=== PATIENT | female | born 1970 | race Caucasian/White ===

== ENCOUNTER 2018-08-01 06:51 | Emergency (ER) | payer SELFPAY ==
[2018-08-01 07:02] VITALS: BP 155/84
--- NOTE | 2018-08-01 07:10 | ED Physician Documentation ---
PD HPI BACK PAIN - Stated complaint Stated Complaint: BACK PX - Chief complaint Chief Complaint: Back Pain - History obtained from History obtained from: Patient, Family - History of Present Illness Timing - onset: Yesterday Timing - duration: Days Timing - details: Abrupt onset, Still present Location: Lower, Left Quality: Pain, Spasm, Sharp, Similar to prior episodes Associated symptoms: No: Fever, Weakness, Numbness, Incontinent of urine, Unable to urinate, Hematuria, Incontinent of stool Improves with: Rest, Ice, Position, Meds Worsened by: Movement Contributing factors: Other (tripped on linoleum in travel trailer and ministerio the body) Similar symptoms before: Diagnosis (lumbar disc disease) Recently seen: Not recently seen - Additional information Additional information: 47-year-old female with a prior history of L5-S1 back surgery was in a travel trailer tripped on a piece of linoleum jarring her back and now she has pain in the lower back radiating down the left thigh. She denies any urinary incontinence or fecal incontinence. She has had similar pains previously. She had her back surgery in 2011 and has had only one similar episode since then. She does not do well with Percocet. Review of Systems Constitutional: denies: Fever Eyes: denies: Decreased vision Ears: denies: Ear pain Nose: denies: Congestion Throat: denies: Sore throat Cardiac: denies: Chest pain / pressure, Palpitations Respiratory: denies: Dyspnea, Cough GI: denies: Abdominal Pain, Nausea, Vomiting : denies: Dysuria, Frequency Skin: denies: Rash Musculoskeletal: reports: Back pain. denies: Neck pain Neurologic: denies: Generalized weakness, Focal weakness, Numbness PD PAST MEDICAL HISTORY - Present Medications Home Medications: Ambulatory Orders Medication Instructions Recorded Confirmed Cyclobenzaprine [Flexeril] 10 mg PO TID PRN #20 tablet 08/01/18 traMADol [Ultram] 50 mg PO Q6H PRN #20 tablet 08/01/18 - Allergies Allergies/Adverse Reactions: Allergies Allergy/AdvReac Type Severity Reaction Status Date / Time acetaminophen [From Percocet] Allergy Unknown Verified 08/01/18 07:02 oxycodone [From Percocet] Allergy Unknown Verified 08/01/18 07:02 PD ED PE NORMAL - Vitals Vital signs reviewed: Yes (hypertensive ) - General General: Alert and oriented X 3, No acute distress, Well developed/nourished - HEENT HEENT: Atraumatic, PERRL, EOMI - Respiratory Respiratory: No respiratory distress - Back Back: No CVA TTP, No spinal TTP, Other (point tenderness to the left lower lumbar paraspinous muslces into the sciatic notch on the left. ) - Derm Derm: Normal color, Warm and dry, No rash - Extremities Extremities: No deformity, No edema - Neuro Neuro: Alert and oriented X 3, No motor deficit, No sensory deficit, Normal speech Eye Opening: Spontaneous Motor: Obeys Commands Verbal: Oriented GCS Score: 15 - Psych Psych: Normal mood, Normal affect Results - Vitals Vitals: Vital Signs - 24 hr 08/01/18 06:55 Temperature 36.5 C Heart Rate 96 Respiratory 18 Rate Blood Pressure 155/84 H O2 Saturation 97 Oxygen O2 Source Room air PD MEDICAL DECISION MAKING - ED course Complexity details: considered differential, d/w patient, d/w family ED course: 47-year-old female with a history of prior lumbar surgery has a jarring injury and has sciatica now. She is administered dexamethasone 10 mg orally we will place her on some tramadol and cyclobenzaprine. Departure - Departure Disposition: 01 Home, Self Care Clinical Impression: Sciatica Qualifiers: Laterality: left Qualified Code(s): M54.32 - Sciatica, left side Condition: Stable Instructions: ED Sciatica Follow-Up: [facility] [Provider Group] Prescriptions: Cyclobenzaprine [Flexeril] 10 mg PO TID PRN #20 tablet PRN Reason: Spasms traMADol [Ultram] 50 mg PO Q6H PRN #20 tablet PRN Reason: Pain
[2018-08-01] MEDS ORDERED: DEXAMETHASONE 10 MG/ML VIAL PO STA (07:19)
== END 2018-08-01 07:51 | disposition home or self-care (01) ==
LOC: ED 06:51
DX: M54.32 Sciatica, left side (principal); Z98.890 Other specified postprocedural states; Z91.81 History of falling
CPT/HCPCS: 99283

== ENCOUNTER 2018-10-24 02:10 | Emergency (ER) | payer SELFPAY ==
[2018-10-24] MEDS ORDERED: KETOROLAC 60 MG/2 ML VIAL IM STA (02:51)
[2018-10-24] MEDS ORDERED: CYCLOBENZAPRINE 10 MG Prepack 2 PO PRN (02:52)
[2018-10-24] MEDS ORDERED: HYDROcod/ACET 5/325 Prepack 4 PO STA (02:52)
[2018-10-24] MEDS ORDERED: DEXAMETHASONE 10 MG/ML VIAL PO STA (02:52)
--- NOTE | 2018-10-24 02:55 | ED Physician Documentation ---
PD HPI BACK PAIN - Stated complaint Stated Complaint: RT HIP PAIN NON TRAUMATIC - Chief complaint Chief Complaint: Ext Problem - History obtained from History obtained from: Patient, Family - History of Present Illness Timing - onset: How many days ago (3) Timing - duration: Days (3) Timing - details: Abrupt onset, Still present Location: Lower, Right Quality: Pain, Spasm, Sharp, Similar to prior episodes Associated symptoms: Numbness. No: Fever, Weakness, Incontinent of urine, Unable to urinate, Hematuria, Incontinent of stool Improves with: Rest, Ice, Position, Meds Worsened by: Movement Similar symptoms before: Diagnosis (sciatica) Recently seen: Not recently seen - Additional information Additional information: 47-year-old female with a history of chronic back pain and status post surgery was well until July of last year when she developed acute sciatica and she improved from the treatment of that. She is now on exacerbation of her lower back pain on the right side and she has been laying on a heating pack she has some numbness along the outside of her right thigh and she has pain radiating into her groin. She denies any saddle anesthesia or urinary incontinence or fecal incontinence. She cannot really recall a loading injury but she does state that she has lifted some heavy bags of dog food in this past week but did not have acute pain at the time. Review of Systems Constitutional: denies: Fever Eyes: denies: Decreased vision Ears: denies: Ear pain Nose: denies: Congestion Throat: denies: Sore throat GI: denies: Abdominal Pain, Nausea, Vomiting : denies: Dysuria, Frequency Skin: denies: Rash Musculoskeletal: reports: Back pain. denies: Neck pain Neurologic: reports: Numbness. denies: Generalized weakness, Focal weakness PD PAST MEDICAL HISTORY - Past Medical History Past Medical History: No - Past Surgical History Past Surgical History: Yes Ortho: Spine surgery - Present Medications Home Medications: Ambulatory Orders Medication Instructions Recorded Confirmed Cyclobenzaprine [Flexeril] 10 mg PO TID PRN #20 tablet 08/01/18 traMADol [Ultram] 50 mg PO Q6H PRN #20 tablet 08/01/18 Cyclobenzaprine [Flexeril] 10 mg PO TID PRN #20 tablet 10/24/18 Hydrocodone/Acetaminophen 1 - 2 each PO Q6H PRN #14 tablet 10/24/18 [Hydrocodon-Acetaminophen 5-325] - Allergies Allergies/Adverse Reactions: Allergies Allergy/AdvReac Type Severity Reaction Status Date / Time acetaminophen [From Percocet] Allergy Unknown Verified 10/24/18 02:18 oxycodone [From Percocet] Allergy Unknown Verified 10/24/18 02:18 - Social History Does the pt smoke?: Yes Smoking Status: Current every day smoker Does the pt drink ETOH?: Yes Does the pt have substance abuse?: No - Immunizations Immunizations are current?: Yes - POLST Patient has POLST: No PD ED PE NORMAL - Vitals Vital signs reviewed: Yes (hypertensive ) - General General: Alert and oriented X 3, Well developed/nourished, Other (The patient appears to be in pain and is wiggling in the bed. 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, No motor deficit, Normal speech Eye Opening: Spontaneous Motor: Obeys Commands Verbal: Oriented GCS Score: 15 - Psych Psych: Normal mood Results - Vitals Vitals: Vital Signs - 24 hr 10/24/18 02:14 Temperature 36.5 C Heart Rate 76 Respiratory 20 Rate Blood Pressure 135/65 H O2 Saturation 100 Oxygen O2 Source Room air PD MEDICAL DECISION MAKING - ED course Complexity details: considered differential, d/w patient, d/w family ED course: 47-year-old female with acute sciatica on the right side is given dexamethasone 10 mg orally and Toradol 60 mg IM and we will place her on some hydrocodone and Flexeril. Departure - Departure Disposition: 01 Home, Self Care Clinical Impression: Sciatica Qualifiers: Laterality: right Qualified Code(s): M54.31 - Sciatica, right side Condition: Stable Instructions: ED Sciatica Follow-Up: [facility] [Provider Group] Prescriptions: Cyclobenzaprine [Flexeril] 10 mg PO TID PRN #20 tablet PRN Reason: Spasms Hydrocodone/Acetaminophen [Hydrocodon-Acetaminophen 5-325] 1 - 2 each PO Q6H PRN #14 tablet PRN Reason: pain
[2018-10-24 04:00] VITALS: BP 156/85
== END 2018-10-24 03:30 | disposition home or self-care (01) ==
LOC: ED 02:10
DX: M54.31 Sciatica, right side (principal); G89.29 Other chronic pain; F17.200 Nicotine dependence, unspecified, uncomplicated
CPT/HCPCS: 96372; 99283

== ENCOUNTER 2019-09-02 06:37 | Emergency (ER) | payer SELFPAY ==
[2019-09-02] MEDS ORDERED: IPRATROPIUM/ALBUTEROL 3 ML NEB INH STA (07:35)
[2019-09-02] MEDS ORDERED: predniSONE 20 MG TABLET PO STA (07:35)
--- NOTE | 2019-09-02 08:00 | ED Physician Documentation ---
PD HPI URI - Stated complaint Stated Complaint: COUGH/CONGESTION - Chief complaint Chief Complaint: Resp - History obtained from History obtained from: Patient - History of Present Illness Timing - onset: How many weeks ago (1.5) Timing duration: Weeks (1.5) Timing details: Gradual onset Pain level max: 4 Pain level now: 3 Associated symptoms: Nasal congestion, Rhinorrhea, Dyspnea (Wheezing). No: Fever, Chills Contributing factors: Sick contact ( sick with same) Improves by: Rest Worsened by: Activity, Breathing Recently seen: Not recently seen Review of Systems Constitutional: denies: Fever, Chills Nose: reports: Rhinorrhea / runny nose, Congestion Respiratory: reports: Cough, Wheezing : denies: Dysuria, Now EGA Skin: denies: Rash Musculoskeletal: denies: Neck pain, Back pain Neurologic: denies: Headache PD PAST MEDICAL HISTORY - Past Medical History Past Medical History: No - Past Surgical History Past Surgical History: Yes Ortho: Spine surgery - Present Medications Home Medications: Ambulatory Orders Medication Instructions Recorded Confirmed Cyclobenzaprine [Flexeril] 10 mg PO TID PRN #20 tablet 08/01/18 traMADol [Ultram] 50 mg PO Q6H PRN #20 tablet 08/01/18 Cyclobenzaprine [Flexeril] 10 mg PO TID PRN #20 tablet 10/24/18 Hydrocodone/Acetaminophen 1 - 2 each PO Q6H PRN #14 tablet 10/24/18 [Hydrocodon-Acetaminophen 5-325] Albuterol Sulf [Ventolin Hfa 1 - 2 puffs INH Q4HR PRN #1 inhaler 09/02/19 Inhaler] Benzonatate [Tessalon Perle] 100 - 200 mg PO TID PRN #30 capsule 09/02/19 Doxycycline Hyclate 100 mg PO BID #20 capsule 09/02/19 predniSONE [Deltasone] 10 mg PO [id number] #42 tab 09/02/19 - Allergies Allergies/Adverse Reactions: Allergies Allergy/AdvReac Type Severity Reaction Status Date / Time acetaminophen [From Percocet] Allergy Unknown Verified 10/24/18 02:18 oxycodone [From Percocet] Allergy Unknown Verified 10/24/18 02:18 - Social History Does the pt smoke?: Yes Smoking Status: Current every day smoker Does the pt drink ETOH?: Yes Does the pt have substance abuse?: No - Immunizations Immunizations are current?: Yes - POLST Patient has POLST: No PD ED PE NORMAL - Vitals Vital signs reviewed: Yes - General General: Alert and oriented X 3, No acute distress, Well developed/nourished - HEENT HEENT: Moist mucous membranes - Neck Neck: Supple, no meningeal sign - Cardiac Cardiac: RRR - Respiratory Respiratory: No respiratory distress, Other (Wheezing bilaterally) - Abdomen Abdomen: Soft, Non tender, Non distended - Derm Derm: Warm and dry - Extremities Extremities: No edema - Neuro Neuro: Alert and oriented X 3 - Psych Psych: Normal mood, Normal affect Results - Vitals Vitals: Vital Signs - 24 hr 09/02/19 09/02/19 09/02/19 06:40 07:47 09:03 Temperature 36.7 C Heart Rate 71 89 67 Respiratory 18 14 18 Rate Blood Pressure 148/69 H 140/59 H O2 Saturation 100 96 Oxygen O2 Source Room air - Rads (name of study) cxr Radiology: Prelim report reviewed, EMP read contemporaneously, See rad report (Small focal mild and patchy opacity in the right middle lobe, suggesting early or mild infiltrate, pneumonia. ) PD MEDICAL DECISION MAKING - ED course Complexity details: reviewed results, re-evaluated patient, considered differential, d/w patient ED course: Patient is well-appearing, nontoxic. Feels better after nebulizer treatment and steroids. Will treat for possible early pneumonia. No hypoxia. No respiratory distress. Patient counseled regarding signs and symptoms for which I believe and urgent re-evaluation would be necessary. Patient with good understanding of and agreement to plan and is comfortable going home at this time This document was made in part using voice recognition software. While efforts are made to proofread this document, sound alike and grammatical errors may occur. Departure - Departure Disposition: 01 Home, Self Care Clinical Impression: Upper respiratory infection Qualifiers: URI type: unspecified URI Qualified Code(s): J06.9 - Acute upper respiratory infection, unspecified Condition: Good Instructions: ED Upper Resp Infec Abx Tx Follow-Up: Your,doctor in 1 week [Other] Prescriptions: Albuterol Sulf [Ventolin Hfa Inhaler] 1 - 2 puffs INH Q4HR PRN #1 inhaler PRN Reason: Shortness Of Air/Wheezing Benzonatate [Tessalon Perle] 100 - 200 mg PO TID PRN #30 capsule PRN Reason: Cough Doxycycline Hyclate 100 mg PO BID #20 capsule predniSONE [Deltasone] 10 mg PO [id number] #42 tab Comments: Return if you worsen. Drink plenty of fluids. Use the inhaler as needed. Take the steroids until gone. There may be an early pneumonia on your chest x-ray today, therefore we will treat you with antibiotics as well. Discharge Date/Time: 09/02/19 09:05
--- NOTE | 2019-09-02 08:28 | XRAY Report ---
Reason: cough Procedure Date: 09/02/2019 Accession Number: [id number] / [id number] Procedure: XR - Chest 2 View X-Ray CPT Code: 78911 Final Report FULL RESULT: EXAM: CHEST RADIOGRAPHY EXAM DATE: 09/02/2019 08:13 AM. CLINICAL HISTORY: Cough. COMPARISON: None. TECHNIQUE: 2 views. FINDINGS: Lungs/Pleura: Small focal mild and patchy opacity in the right middle lobe is visualized. No pleural effusion. No pneumothorax. Normal volumes. Mediastinum: Heart and mediastinal contours are unremarkable. Other: Mild/moderate degenerative process of the right AC joint is seen. IMPRESSION: Small focal mild and patchy opacity in the right middle lobe, suggesting early or mild infiltrate, pneumonia. RADIA
[2019-09-02 09:05] VITALS: BP 140/59
== END 2019-09-02 09:05 | disposition home or self-care (01) ==
LOC: ED 06:37
DX: J06.9 Acute upper respiratory infection, unspecified (principal); F17.200 Nicotine dependence, unspecified, uncomplicated
CPT/HCPCS: 71046; 94640; 99284; J7512

== ENCOUNTER 2020-07-08 07:08 | Outpatient (CLI) | payer OTHER ==
[2020-07-08 15:18] LABS: BASOPHILS # (AUTO) 0.1 10^3/uL (0.0-0.1); BASOPHILS % (AUTO) 0.7 %; EOSINOPHILS # (AUTO) 0.4 10^3/uL (0.0-0.7); EOSINOPHILS % (AUTO) 3.7 %; HGB - HEMOGLOBIN 14.1 g/dL (12.0-16.0); LYMPHOCYTES # (AUTO) 3.3 10^3/uL (1.5-3.5); LYMPHOCYTES % (AUTO) 33.5 %; MEAN CORPUSCULAR HEMOGLOBIN 30.6 pg (27.0-31.0); MEAN CORPUSCULAR HGB CONC 33.3 g/dL (32.0-36.0); MEAN PLATELET VOLUME 9.3 fL (7.9-10.8); MONOCYTES # (AUTO) 0.6 10^3/uL (0.0-1.0); MONOCYTES % (AUTO) 6.2 %; NEUTROPHILS # (AUTO) 5.4 10^3/uL (1.5-6.6); NEUTROPHILS % (AUTO) 55.1 %; PLT - PLATELET COUNT 350 10^3/uL (130-450); RED BLOOD COUNT 4.61 10^6/uL (4.20-5.40); RED CELL DISTRIBUTION WIDTH 13.5 % (12.0-15.0); WHITE BLOOD COUNT 9.8 x10^3/uL (4.8-10.8)
[2020-07-08 15:39] LABS: ALBUMIN 4.3 g/dL (3.2-5.5); ALBUMIN/GLOBULIN RATIO 1.4 (1.0-2.2); ALKALINE PHOSPHATASE 84 IU/L (42-121); ALT ALANINE AMINOTRANSFERASE 17 IU/L (10-60); AST ASPARTATE AMINOTRANSFERASE 16 IU/L (10-42); BILIRUBIN,TOTAL 0.6 mg/dL (0.2-1.0); BUN - BLOOD UREA NITROGEN 22 mg/dL (6-20); CARBON DIOXIDE - CO2 24 mmol/L (21-32); CHLORIDE 106 mmol/L (101-111); CHOL/HDL RATIO 4.9 (<4.4); CHOLESTEROL 204 mg/dL; CREATININE 0.9 mg/dL (0.4-1.0); GLUCOSE 96 mg/dL (70-100); HDL CHOLESTEROL 42 mg/dL; LDL CHOLESTEROL,CALCULATED 127 mg/dL; SODIUM 138 mmol/L (135-145); TOTAL PROTEIN 7.3 g/dL (6.7-8.2); VLDL CHOLESTEROL 35 mg/dL
== END 2020-07-08 07:09 | disposition home or self-care (01) ==
LOC: LAB.S 07:08
PROVIDERS: ATTEND Registered Nurse
DX: Z13.0 Encounter for screening for diseases of the blood and blood-forming organs and certain disorders involving the immune mechanism (principal); F17.200 Nicotine dependence, unspecified, uncomplicated; Z13.228 Encounter for screening for other metabolic disorders; Z13.29 Encounter for screening for other suspected endocrine disorder; Z13.220 Encounter for screening for lipoid disorders
CPT/HCPCS: 36415; 80053; 80061; 83721; 84443; 85025

== ENCOUNTER 2020-09-22 07:40 | Outpatient (CLI) | payer OTHER | END 2020-09-22 23:59 | disposition home or self-care (01) | LOC: LAB 07:40 | PROVIDERS: ATTEND Physician Assistant | DX: J02.9 Acute pharyngitis, unspecified (principal); J04.0 Acute laryngitis; Z20.828 Contact with and (suspected) exposure to other viral communicable diseases ==